=== PATIENT | female | born 1990 | race Two or more races ===

== ENCOUNTER 2017-04-17 03:58 | Emergency (ER) | payer BC ==
[2017-04-17 04:07] VITALS: BP 110/73; BMI 22.2
[2017-04-17] MEDS ORDERED: TORADOL 60 MG VIAL IM ONE (04:51)
[2017-04-17] MEDS ORDERED: TORADOL 60 MG VIAL ONE (04:52)
--- NOTE | 2017-04-17 05:25 | DR.GENAD ---
HPI - PCP Primary Care Physician: NFD - HPI Comment HPI Comment: RUNNING FEVER, HAVING SORE THROAT, HEADACHE AND RIGHT ENLARGE LYMPH NODE BELOW RIGHT EAR. - Complaint/Symptoms Chief Complaint Doctors Comments: SICK YESTERDAY AND WORSE TONIGHT. Chief Complaint:: FEVER, SHAKING, RIGHT JAW LINE SWOLLEN, ONSET TONIGHT, Self Treatment fo Chief Complaint: NONE - Nurses notes reviewed Nurses Notes Review: Yes - Source History Provided: Patient - Mode of Arrival Mode of Arrival: Ambulatory - Timing Onset of Chief Complaint: 04/17/17 Came on: Suddenly - Duration Duration: Constant Duration: Days - Severity Severity: Moderate PMH - PMH Past Medical History: No Past Surgical History: Yes Surgical History: - Family History History of Family Medical Conditions: No - Social History Does patient currently use any type of tobacco product: No Have you used tobacco products in the last 12 months: No Type of Tobacco Use: None Does any household member use tobacco: No Alcohol Use: Rarely, Occasionally Do you use any recreational Drugs:: No Lives With: Spouse Lives Where: Home - infectious screening In the last 2 months have you had wt loss of >10#?: NO Have you had fever, night sweats or hemotysis?: No Have you traveled outside the country in the last 6 months?: No Isolation: Standard ROS - Review of Systems Constitutional: Chills, Diaphoresis, Fever, Malaise, Weakness, Fatigue Eyes: No Symptoms Reported. negative: Eye Pain, Discharge ENTM: Nose Congestion, Throat Pain. negative: Ear Pain, Nose Discharge Respiratoy: Moist Cough, Short of Breath. negative: Wheezing, Hemoptysis Cardiovascular: No Symptoms Reported Gastrointestinal/Abdominal: No Symptoms Reported Genitourinary: No Symptoms Reported Neurological: Headache, Weakness, Dizziness Musculoskeletal: Back Pain, Joint Pain, Muscle Pain Integumentary: Rash (extremities) Hematologic/Lymphatic: No Symptoms Reported Endocrine: No Symptoms Reported All Other Systems: Reviewed and Negative PE - Vital Signs Vitals: Temperature 99.1 F Pulse Rate 88 Respiratory Rate 16 Blood Pressure 110/73 O2 Sat by Pulse Oximetry 98 - General Limitations: No Limitations General Appearance: Alert - Head Head Exam: Normal Inspection - Eyes Eye exam: Normal Appearance - ENT ENT Exam: Normal External Ear Exam. negative: Normal Oropharynx, TM's Normal Bilaterally TM/Canal Exam: Bilateral Bulging Nose Exam: Sinus Tenderness Mouth Exam: Normal Inspection Throat Exam: Tonsillar Erythema, Tonsillomegaly. negative: Tonsillar Exudate - Neck Neck Exam: Trachea Midline, Lymphadenopathy (gulf ball size lymph node below right ear. tender.) - Chest Chest Inspection: Symmetric Chest Wall Rise - Respiratory Respiratory Exam: Normal Lung Sounds Bilat Respiratory Exam: Bilateral Rhonchi, Lower Rhonchi - Cardiovascular Cardiovascular Exam: Regular Rate, Normal Rhythm, Normal Heart Sounds - Abdominal Exam Abdominal Exam: Normal Bowel Sounds, Soft. negative: Tenderness - Extremities Extremities Exam: Normal Inspection - Back Back Exam: Normal Inspection - Neurologic Neurological Exam: Alert, Oriented X3 - Psychiatric Psychiatric Exam: Normal Affect, Normal Mood - Skin Skin Exam: Normal Color MDM - Additional Information Additional Information Obtained From: Family - Differential Diagnosis Differential Diagnosis: MONO, STREP UTI, BRONCHITIS, PNEUMONIA, LYMPH ADENITIS, CAT SCRATCH DISE Course - Treatment Treatment: SEE ORDERS. TORADOL IM IN ED. TEMP DECREASING. - Education/Counseling Education/Counseling: Patient, Family, Education Educated On: Treatment, Diagnosis, Needs for Follow Up ROR - Labs Reviewed Laboratory Results Reviewed?: Yes Result Diagrams: 04/17/17 04:55 04/17/17 04:55 Laboratory: WBC 5.7 X10^3/uL (3.6-10.0) 04/17/17 04:55 RBC 4.59 X10^6/uL (3.5-5.4) 04/17/17 04:55 Hgb 13.6 g/dL (12.0-16.0) 04/17/17 04:55 Hct 38.8 % (36.0-47.0) 04/17/17 04:55 MCV 84.6 fL (80.0-100.0) 04/17/17 04:55 MCH 29.7 pg (27.0-34.0) 04/17/17 04:55 MCHC 35.1 g/dL (33.0-35.0) H 04/17/17 04:55 RDW 12.2 % (11.6-16.5) 04/17/17 04:55 Plt Count 174 X10^3/uL (150.0-450.0) 04/17/17 04:55 MPV 9.9 fL (7.4-11.0) 04/17/17 04:55 Neut % 82.5 % (42.0-75.0) H 04/17/17 04:55 Lymph % 10.4 % (21.0-51.0) L 04/17/17 04:55 [place] % 6.9 % (0.0-13.0) 04/17/17 04:55 Eos % 0.0 % (0.9-2.9) L 04/17/17 04:55 Baso % 0.2 % (0.2-1.0) 04/17/17 04:55 Neut # 4.7 x10^3/uL (2.2-4.8) 04/17/17 04:55 Lymph # 0.6 X10^3/uL (1.3-2.9) L 04/17/17 04:55 [place] # 0.4 x10^3/uL (0.3-0.8) 04/17/17 04:55 Eos # 0.0 x10^3/uL (0.0-0.2) 04/17/17 04:55 Baso # 0.0 X10^3/uL (0.0-0.1) 04/17/17 04:55 Absolute Nucleated RBC 0.0 /100WBC 04/17/17 04:55 Sodium 135 mmol/L (136-145) L 04/17/17 04:55 Corrected Sodium 136 mmol/L (136-145) 04/17/17 04:55 Potassium 3.4 mmol/L (3.5-5.1) L 04/17/17 04:55 Chloride 99 mmol/L (98-107) 04/17/17 04:55 Carbon Dioxide 25.1 mmol/L (21-32) 04/17/17 04:55 BUN 8 mg/dL (7-18) 04/17/17 04:55 Creatinine 0.95 mg/dL (0.55-1.02) 04/17/17 04:55 Est GFR (MDRD) Af Amer > 60 (>60) 04/17/17 04:55 Est GFR (MDRD) Non-Af > 60 (>60) 04/17/17 04:55 Glucose 122 mg/dL (65-99) H 04/17/17 04:55 Calcium 8.7 mg/dL (8.5-10.1) 04/17/17 04:55 Corrected Calcium TNP 04/17/17 04:55 Total Bilirubin 0.70 mg/dL (0.2-1.0) 04/17/17 04:55 AST 35 Units/L (15-37) 04/17/17 04:55 ALT 43 Units/L (12-78) 04/17/17 04:55 Alkaline Phosphatase 185 Units/L (46-116) H 04/17/17 04:55 Total Protein 8.0 g/dL (6.4-8.2) 04/17/17 04:55 Albumin 3.6 g/dL (3.4-5.0) 04/17/17 04:55 Globulin 4.4 g/dL (2.5-4.5) 04/17/17 04:55 Albumin/Globulin Ratio 0.8 Ratio (1.1-2.1) L 04/17/17 04:55 HCG, Qual Negative <10 mIU/mL 04/17/17 04:55 Specimen Type Clean catch urine 04/17/17 06:31 Urine Color Yellow (YELLOW) 04/17/17 06:31 Urine Appearance Clear (CLEAR) 04/17/17 06:31 Urine pH 6.0 (5.0 - 8.0) 04/17/17 06:31 Ur Specific [place] 1.015 (1.000-1.030) 04/17/17 06:31 Urine Protein Negative (NEGATIVE) 04/17/17 06:31 Urine Glucose (UA) Negative (NEGATIVE) 04/17/17 06:31 Urine Ketones Negative (NEGATIVE) 04/17/17 06:31 Urine Occult Blood 4+ (NEGATIVE) 04/17/17 06:31 Urine Nitrite Negative (NEGATIVE) 04/17/17 06:31 Urine Bilirubin Negative (NEGATIVE) 04/17/17 06:31 Urine Urobilinogen Normal (NORMAL) 04/17/17 06:31 Ur Leukocyte Esterase 1+ (NEGATIVE) 04/17/17 06:31 Urine RBC 0-3 /HPF (NEGATIVE) 04/17/17 06:31 Urine WBC 0-3 /HPF (NEGATIVE) 04/17/17 06:31 Ur Squamous Epith Cells Rare /HPF (NEGATIVE) 04/17/17 06:31 Urine Bacteria Negative /HPF (NEGATIVE) 04/17/17 06:31 Urine Mucus Few /HPF (NEGATIVE) 04/17/17 06:31 Ur Culture Indicated? No/not indicated 04/17/17 06:31 Monoscreen Negative (NEGATIVE) 04/17/17 04:55 Influenza Type A (PCR) Negative (NEGATIVE) 04/17/17 04:53 Influenza Type B (PCR) Negative (NEGATIVE) 04/17/17 04:53 Streptococcus Screen Negative (NEGATIVE) 04/17/17 04:53 - XRAY XRAY Interpreted by: Radiologist XRAY Findings: REPORT DISCUSS WITH PATIENT. - Diagnosis Discharge Problem: Lymphadenopathy, Fever chills, Tonsillitis, Periauricular lymphadenopathy, Skin rash - Discharge Plan Disposition: HOME, SELF-CARE Condition: Stable Prescriptions: Azithromycin [ZITHROMAX Tab 250 mg *] 1 dose PO DAILY #6 tab Hydroxyzine Pamoate [Vistaril] 25 mg PO TID PRN #20 cap PRN Reason: Ibuprofen [MOTRIN TAB 600 MG *] 600 mg PO TID PRN #30 tab PRN Reason: Pain/Inflammation - Follow ups/Referrals Follow ups/Referrals: NFD,None [Primary Care Provider] - 3 days - Instructions Instructions: Tonsillitis, [id number], Lymphadenopathy, Fever, Adult, Easy-to -Read, Rash, [id number]
[2017-04-17 06:31] LABS: BASOPHILS % (AUTO) 0.2 % (0.2-1.0); HEMATOCRIT 38.8 % (36.0-47.0); HEMOGLOBIN 13.6 g/dL (12.0-16.0); LYMPHOCYTES # (AUTO) 0.6 X10^3/uL (1.3-2.9); LYMPHOCYTES % (AUTO) 10.4 % (21.0-51.0); MEAN CORPUSCULAR HEMOGLOBIN 29.7 pg (27.0-34.0); MEAN CORPUSCULAR HGB CONC 35.1 g/dL (33.0-35.0); MEAN CORPUSCULAR VOLUME 84.6 fL (80.0-100.0); MEAN PLATELET VOLUME 9.9 fL (7.4-11.0); MONOCYTES # (AUTO) 0.4 x10^3/uL (0.3-0.8); MONOCYTES % (AUTO) 6.9 % (0.0-13.0); NEUTROPHILS # (AUTO) 4.7 x10^3/uL (2.2-4.8); NEUTROPHILS % (AUTO) 82.5 % (42.0-75.0); PLATELET COUNT 174 X10^3/uL (150.0-450.0); RED BLOOD COUNT 4.59 X10^6/uL (3.5-5.4); RED CELL DISTRIBUTION WIDTH 12.2 % (11.6-16.5); WHITE BLOOD COUNT 5.7 X10^3/uL (3.6-10.0)
[2017-04-17 06:39] LABS: ALANINE AMINOTRANSFERASE 43 Units/L (12-78); ALBUMIN 3.6 g/dL (3.4-5.0); ALKALINE PHOSPHATASE 185 Units/L (46-116); ASPARTATE AMINO TRANSFERASE 35 Units/L (15-37); BLOOD UREA NITROGEN 8 mg/dL (7-18); CALCIUM 8.7 mg/dL (8.5-10.1); CARBON DIOXIDE 25.1 mmol/L (21-32); CHLORIDE 99 mmol/L (98-107); COR NA(FOR HYPERGLY) 136 mmol/L (136-145); CREATININE 0.95 mg/dL (0.55-1.02); SODIUM 135 mmol/L (136-145); eGFR BLACK RACES > 60 (>60); eGFR NON BLACK RACES > 60 (>60)
[2017-04-17 06:42] LABS: BILIRUBIN,URINE NEGATIVE (NEGATIVE); BLOOD/HEMOGLOBIN,URINE 4+ (NEGATIVE); GLUCOSE, URINE NEGATIVE (NEGATIVE); KETONES,URINE NEGATIVE (NEGATIVE); LEUKOCYTE ESTERASE ,URINE 1+ (NEGATIVE); NITRITES,URINE NEGATIVE (NEGATIVE); PROTEIN,URINE NEGATIVE (NEGATIVE); UROBILINOGEN,URINE NORMAL (NORMAL)
--- NOTE | 2017-04-17 07:03 | RAD ---
Examination: Portable AP chest History: Chills and fever Findings: Normal appearance of heart, lungs, mediastinum and pleural spaces. Impression: Normal. Reported By:
[2017-04-17 07:17] LABS: APPEARANCE,URINE CLEAR (CLEAR); BACTERIA,URINE NEGATIVE /HPF (NEGATIVE); COLOR,URINE YELLOW (YELLOW); MUCUS,URINE FEW /HPF (NEGATIVE); RBC,URINE 0-3 /HPF (NEGATIVE); SQUAMOUS EPITHELIAL CELL,UR RARE /HPF (NEGATIVE)
[2017-04-17 08:03] LABS: SERUM PREGNANCY TEST, QUAL NEGATIVE <10 mIU/mL
== END 2017-04-17 08:14 | disposition home or self-care (01) ==
LOC: ER 03:58
DX: R59.1 Generalized enlarged lymph nodes (principal); R50.9 Fever, unspecified; R68.83 Chills (without fever); J03.90 Acute tonsillitis, unspecified; R21 Rash and other nonspecific skin eruption; B95.61 Methicillin susceptible Staphylococcus aureus infection as the cause of diseases classified elsewhere
CPT/HCPCS: 36415; 71045; 80053; 81001; 84703; 85025; 86308; 87070; 87077; 87186; 87502; 87880; 96372; 99283; 99284; J1885

== ENCOUNTER 2017-04-18 18:51 | Emergency (ER) | payer BC ==
[2017-04-18 18:56] VITALS: BP 111/66; BMI 22.2
[2017-04-18 19:51] LABS: BASOPHILS % (AUTO) 0.2 % (0.2-1.0); HEMATOCRIT 38.2 % (36.0-47.0); HEMOGLOBIN 13.2 g/dL (12.0-16.0); LYMPHOCYTES % (AUTO) 7.8 % (21.0-51.0); MEAN CORPUSCULAR HEMOGLOBIN 29.2 pg (27.0-34.0); MEAN CORPUSCULAR HGB CONC 34.4 g/dL (33.0-35.0); MEAN CORPUSCULAR VOLUME 84.9 fL (80.0-100.0); MEAN PLATELET VOLUME 9.1 fL (7.4-11.0); MONOCYTES # (AUTO) 0.7 x10^3/uL (0.3-0.8); MONOCYTES % (AUTO) 5.5 % (0.0-13.0); NEUTROPHILS # (AUTO) 11.1 x10^3/uL (2.2-4.8); NEUTROPHILS % (AUTO) 86.5 % (42.0-75.0); PLATELET COUNT 135 X10^3/uL (150.0-450.0); RED CELL DISTRIBUTION WIDTH 12.5 % (11.6-16.5); WHITE BLOOD COUNT 12.8 X10^3/uL (3.6-10.0)
--- NOTE | 2017-04-18 20:08 | DR.GENAD ---
HPI - PCP Primary Care Physician: nfd - HPI Comment HPI Comment: Rash persists and pt still feels ill. Please see Dr Byrne's comprehensive note and workup from yesterday for details of pt's initial presentation. Pt's care transferred to Dr Byrne at shift change - Complaint/Symptoms Chief Complaint:: rash on arms and legs and pubic area o/s morning. no itching - Source History Provided: Patient - Mode of Arrival Mode of Arrival: Ambulatory - Timing Onset of Chief Complaint: 04/17/17 <KIN WILCOX - Last Filed: 04/18/17 20:24> PMH - PMH Past Medical History: Yes (hx mono) Past Surgical History: Yes Surgical History: - Family History History of Family Medical Conditions: No - Social History Does patient currently use any type of tobacco product: No Have you used tobacco products in the last 12 months: No Type of Tobacco Use: None Does any household member use tobacco: No Alcohol Use: None Do you use any recreational Drugs:: No Lives With: Family Lives Where: Home - infectious screening Have you traveled outside the country in the last 6 months?: No Isolation: Standard <KIN WILCOX - Last Filed: 04/18/17 20:24> ROS - Review of Systems Constitutional: Chills, Fever, Malaise ENTM: Throat Pain (fever blisters, including on frenulum) Respiratoy: No Symptoms Reported Cardiovascular: No Symptoms Reported Gastrointestinal/Abdominal: No Symptoms Reported Genitourinary: No Symptoms Reported Neurological: No Symptoms Reported Musculoskeletal: No Symptoms Reported Integumentary: Rash Hematologic/Lymphatic: No Symptoms Reported Endocrine: No Symptoms Reported Psychiatric: No Symptoms Reported All Other Systems: Reviewed and Negative <KIN WILCOX - Last Filed: 04/18/17 20:24> PE - General Limitations: No Limitations General Appearance: Alert, In No Apparent Distress, Anxious - Head Head Exam: Normal Inspection, Normocephalic - Eyes Eye exam: Normal Appearance - ENT Nose Exam: Normal Nose Exam Mouth Exam: Other (lesions under tongue, consistent in appearance with fever blisters) Throat Exam: negative: Tonsillar Erythema - Neck Neck Exam: Normal Inspection, Full ROM, Trachea Midline. negative: Tenderness, Meningismus, Lymphadenopathy, Thyromegaly - Respiratory Respiratory Exam: Normal Lung Sounds Bilat Respiratory Exam: Bilateral Clear to Auscultation - Cardiovascular Cardiovascular Exam: Regular Rate, Normal Rhythm, Normal Heart Sounds - Abdominal Exam Abdominal Exam: Normal Inspection, Normal Bowel Sounds, Soft. negative: Tenderness, Guarding - Extremities Extremities Exam: Normal Inspection - Neurologic Neurological Exam: Alert, Oriented X3 - Psychiatric Psychiatric Exam: Normal Affect, Normal Mood - Skin Skin Exam: Rash (mac pap rash on all 4 extremities. Raised area approx 1-2mm with 1cm area surrounding erythema. Appearance c/w insect bites. A few lesions on trunk but primarily on extremities. Spouse and child have no skin lesions.) <KIN WILCOX - Last Filed: 04/18/17 20:24> - Vital Signs Vitals: Temperature 97.7 F Pulse Rate 100 Respiratory Rate 16 Blood Pressure 111/66 O2 Sat by Pulse Oximetry 100 ROR - Labs Reviewed Laboratory Results Reviewed?: No (labs not resulted at time of shift change) <KIN WILCOX - Last Filed: 04/18/17 20:24> - Labs Reviewed Result Diagrams: 04/18/17 19:35 <SAAD BYRNE - Last Filed: 04/18/17 21:17> - Labs Reviewed Laboratory: WBC 12.8 X10^3/uL (3.6-10.0) H 04/18/17 19:35 RBC 4.50 X10^6/uL (3.5-5.4) 04/18/17 19:35 Hgb 13.2 g/dL (12.0-16.0) 04/18/17 19:35 Hct 38.2 % (36.0-47.0) 04/18/17 19:35 MCV 84.9 fL (80.0-100.0) 04/18/17 19:35 MCH 29.2 pg (27.0-34.0) 04/18/17 19:35 MCHC 34.4 g/dL (33.0-35.0) 04/18/17 19:35 RDW 12.5 % (11.6-16.5) 04/18/17 19:35 Plt Count 135 X10^3/uL (150.0-450.0) L 04/18/17 19:35 MPV 9.1 fL (7.4-11.0) 04/18/17 19:35 Neut % 86.5 % (42.0-75.0) H 04/18/17 19:35 Lymph % 7.8 % (21.0-51.0) L 04/18/17 19:35 [place] % 5.5 % (0.0-13.0) 04/18/17 19:35 Eos % 0.0 % (0.9-2.9) L 04/18/17 19:35 Baso % 0.2 % (0.2-1.0) 04/18/17 19:35 Neut # 11.1 x10^3/uL (2.2-4.8) H 04/18/17 19:35 Lymph # 1.0 X10^3/uL (1.3-2.9) L 04/18/17 19:35 [place] # 0.7 x10^3/uL (0.3-0.8) 04/18/17 19:35 Eos # 0.0 x10^3/uL (0.0-0.2) 04/18/17 19:35 Baso # 0.0 X10^3/uL (0.0-0.1) 04/18/17 19:35 Absolute Nucleated RBC 0.0 /100WBC 04/18/17 19:35 ESR 48 MM/HOUR (0-20) H 04/18/17 19:35 C-Reactive Protein 148.50 mg/L (0-3.0) H 04/18/17 19:35 Influenza Type A (PCR) Negative (NEGATIVE) 04/18/17 19:43 Influenza Type B (PCR) Negative (NEGATIVE) 04/18/17 19:43 Streptococcus Screen Negative (NEGATIVE) 04/18/17 19:43 <KIN WILCOX - Last Filed: 04/18/17 20:24> <SAAD BYRNE - Last Filed: 04/18/17 21:17> - Diagnosis Discharge Problem: Rash, Chills, Fever chills - Discharge Plan Condition: Stable Prescriptions: Hydrocortisone [Hydrocortisone (Topical) Large Jar] 30 gm TP TID #1 cream..g. - Follow ups/Referrals Follow ups/Referrals: NFD,None [Primary Care Provider] - 3 days - Instructions Instructions: Rash, [id number] Additional Instructions: RETURN TO ED IF WORSE.
== END 2017-04-18 21:17 | disposition home or self-care (01) ==
LOC: ER 18:59
DX: R21 Rash and other nonspecific skin eruption (principal); R68.83 Chills (without fever); R50.9 Fever, unspecified
CPT/HCPCS: 36415; 85025; 85652; 86140; 87070; 87502; 87880; 99282